=== PATIENT | male | born 2000 | race Caucasian/White ===

== ENCOUNTER 2023-07-14 23:17 | Inpatient (IN) | payer BC ==
--- NOTE | 2023-07-14 23:30 | ED ---
General Adult HPI <Herman Ross - Last Filed: 07/14/23 23:30> - General Source: RN notes reviewed, old records reviewed <Fabio Dowell - Last Filed: 07/16/23 21:32> - General Stated complaint: Suicidal Time Seen by Provider: 07/14/23 23:30 - History of Present Illness Initial comments: 22-year-old male presenting to the ED with a chief complaint of suicidal ideation. Notes he has been feeling more depressed lately. Does note history of prior suicide attempt. (Herman Ross) Patient is a 22-year-old male who presents emergency department family for concern for psychiatric complaints. Patient made suicidal statements of wanting to kill himself earlier today. Does have a history of attempts last year via overdose. Patient has been seeing a therapist as well as psychiatrist. Has been on medications. States that over the last couple days thoughts seem to be getting worse. Attributes it to his OCD. Presents for further evaluation at this time. Denies any attempts but just generalized suicidal ideations. Denies any homicidal ideations, intents, plans. Denies any hallucinations. Presents for further evaluation. Originally seen as a quick note. States he has been feeling more depressed lately. (Fabio Dowell) - Related Data Home Medications Medication Instructions Recorded Confirmed Sertraline [Zoloft] 250 mg PO DAILY 07/15/23 07/15/23 busPIRone HCl [Buspar] 10 mg PO TID 07/15/23 07/15/23 clomiPRAMINE HCL [Anafranil] 150 mg PO HS 07/15/23 07/15/23 diazePAM [Valium] 5 mg PO BID PRN 07/15/23 07/15/23 Allergies Allergy/AdvReac Type Severity Reaction Status Date / Time No Known Allergies Allergy Verified 07/15/23 09:04 Review of Systems ROS Other: All systems not noted in ROS Statement are negative. <Herman Ross - Last Filed: 07/14/23 23:30> ROS Other: All systems not noted in ROS Statement are negative. <Fabio Dowell - Last Filed: 07/16/23 21:32> ROS Statement: Those systems with pertinent positive or pertinent negative responses have been documented in the HPI. Review of Systems: CONST: Denies fever EYES: Denies blurry vision ENT: Denies nasal congestion C/V: Denies Chest pain RESP: Denies shortness of breath GI: Denies abdominal pain : Denies dysuria SKIN: Denies rash. MSK: Denies joint pain. NEURO: Denies headache PSYCH: Denies homicidal ideations/plans/attempts. Denies visual or auditory hallucinations. Endorses suicidal ideation but denies plan or attempt. (Fabio Dowell) General Exam <Herman Ross - Last Filed: 07/14/23 23:30> <Fabio Dowell - Last Filed: 07/16/23 21:32> - General Exam Comments Initial Comments: Visual Physical Exam Vital signs reviewed General: Well-appearing, nontoxic, no acute distress. Head: Normocephalic, atraumatic Eyes: PERRLA, EOMI ENT: Airway patent Chest: Nonlabored breathing Skin: No visual rash, normal skin tone Neuro: Alert and oriented 3 Musculoskeletal: No gross abnormalities (Herman Ross) General: Appears anxious HEAD: Normal with no signs of head trauma. EYES: EOMI. PERRLA ENT: Hearing grossly intact, normal oropharynx. RESPIRATORY: Clear breath sounds bilaterally. No wheezes, rales, or rhonchi. C/V: Regular rate and rhythm. S1 and S2 auscultated, no edema, peripheral pulses 2+ and intact throughout ABD: Abd is soft, nontender, nondistended EXT: Normal range of motion, no obvious deformity SKIN: No rashes or lesions observed on exposed skin. NEURO: Alert and oriented x 4. (Fabio Dowell) Course Vital Signs 07/14/23 07/15/23 23:27 06:04 Temperature 98.3 F 97.8 F Pulse Rate 120 H 90 Respiratory 20 18 Rate Blood Pressure 126/77 135/85 O2 Sat by Pulse 95 99 Oximetry Medical Decision Making <Herman Ross - Last Filed: 07/14/23 23:30> - Lab Data Result diagrams: 07/16/23 09:42 07/16/23 09:42 <Fabio Dowell - Last Filed: 07/16/23 21:32> - Medical Decision Making Quicknote portion performed. Signed Herman Ross PA-C (Herman Ross) Was pt. sent in by a medical professional or institution (SIRENA Treviño, SECRETARY TO THE VICE PRESIDENT, urgent care, hospital, or usp...) When possible be specific @ -No Did you speak to anyone other than the patient for history (EMS, parent, family, police, friend...)? What history was obtained from this source @ -Family assist with patient's psychiatric history. Did you review nursing and triage notes (agree or disagree)? Why? @ -I reviewed and agree with nursing and triage notes Were old charts reviewed (outside hosp., previous admission, EMS record, old EKG, old radiological studies, urgent care reports/EKG's, usp records)? Report findings @ -No old charts were reviewed Differential Diagnosis (chest pain, altered mental status, abdominal pain women, abdominal pain men, vaginal bleeding, weakness, fever, dyspnea, syncope, headache, dizziness, GI bleed, back pain, seizure, CVA, palpatations, mental health, musculoskeletal)? @ -Differential Mental Health Depression, anxiety, bipolar, psychosis, schizophrenia, borderline personality, situational depression, adjustment disorder, behavioral disorder, brain tumor, malingering, substance abuse, encephalopathy, medication reaction, dementia, hypothyroidism, degenerative neurologic disorder, lupus.... This is not meant to be all-inclusive list EKG interpreted by me (3pts min.). @ -None done X-rays interpreted by me (1pt min.). @ -None done CT interpreted by me (1pt min.). @ -None done U/S interpreted by me (1pt. min.). @ -None done What testing was considered but not performed or refused? (CT, X-rays, U/S, labs)? Why? @ -None What meds were considered but not given or refused? Why? @ -None Did you discuss the management of the patient with other professionals (professionals i.e. SIRENA Treviño, SECRETARY TO THE VICE PRESIDENT, lab, RT, psych nurse, social insurance administrator, harbor police launch commander, teacher, residential care officer, case management coordinator)? Give summary @ -EPS notified of the consult. Was smoking cessation discussed for >3mins.? @ -No Was critical care preformed (if so, how long)? @ -No Were there social determinants of health that impacted care today? How? (Homelessness, low income, unemployed, alcoholism, drug addiction, transportation, low edu. Level, literacy, decrease access to med. care, residential, rehab)? @ -No Was there de-escalation of care discussed even if they declined (Discuss DNR or withdrawal of care, Hospice)? DNR status @ -No What co-morbidities impacted this encounter? (DM, HTN, Smoking, COPD, CAD, Cancer, CVA, ARF, Chemo, Hep., AIDS, mental health diagnosis, sleep apnea, morbid obesity)? @ -None Was patient admitted / discharged? Hospital course, mention meds given and route, prescriptions, significant lab abnormalities, going to OR and other pertinent info. @ -Based on the patient's presentation and physical exam, presents emergency department for psychiatric evaluation. He will be placed on suicide precautions with a sitter. BAT is 0. UDS is pending. Vital signs within acceptable limits at bedside. I believe patient is medically cleared for evaluation by psychiatry. Disposition is pending psychiatric evaluation. EPS notified of the consult. Patient eventually admitted to inpatient psychiatry. Undiagnosed new problem with uncertain prognosis? @ -No Drug Therapy requiring intensive monitoring for toxicity (Heparin, Nitro, Insulin, Cardizem)? @ -No Were any procedures done? @ -No Diagnosis/symptom? @ -Depression, suicidal behavior Acute, or Chronic, or Acute on Chronic? @ -Acute Uncomplicated (without systemic symptoms) or Complicated (systemic symptoms)? @ -Complicated Side effects of treatment? @ -None Exacerbation, Progression, or Severe Exacerbation] @ -No Poses a threat to life or bodily function? @ -Yes (Fabio Dowell) - Lab Data Lab Results 07/15/23 07/15/23 Range/Units 00:12 11:30 Urine Opiates Screen Not Detected (NotDetected) Ur Oxycodone Screen Not Detected (NotDetected) Urine Methadone Screen Not Detected (NotDetected) Ur Barbiturates Screen Not Detected (NotDetected) U Tricyclic Antidepress Not Detected (NotDetected) Ur Phencyclidine Scrn Not Detected (NotDetected) Ur Amphetamines Screen Not Detected (NotDetected) U Methamphetamines Scrn Not Detected (NotDetected) U Benzodiazepines Scrn Detected H (NotDetected) Urine Cocaine Screen Not Detected (NotDetected) U Marijuana (THC) Screen Not Detected (NotDetected) SARS-CoV-2 (PCR) Not Detected (Not Detectd) Disposition <Herman Ross - Last Filed: 07/14/23 23:30> <Fabio Dowell - Last Filed: 07/16/23 21:32> Clinical Impression: Suicidal behavior, Depression Disposition: TRANSFER TO PSYCH HOSP/UNIT Condition: Stable
[2023-07-15 00:35] LABS: Amphetamine Screen,Urine Not Detected (NotDetected); Barbiturate Screen,Urine Not Detected (NotDetected); Benzodiazepines Screen,Urine Detected (NotDetected); Cocaine Screen,Urine Not Detected (NotDetected); Methadone Screen, Urine Not Detected (NotDetected); Opiate Screen,Urine Not Detected (NotDetected); Oxycodone Screen, Urine Not Detected (NotDetected); Phencyclidine Screen,Urine Not Detected (NotDetected); Tricyclic Antidepressant,Urine Not Detected (NotDetected); Urn Cannabinoid Scrn Not Detected (NotDetected)
[2023-07-15] MEDS ORDERED: OLANZapine 10 MG VIAL IM PRN (21:38)
[2023-07-15] MEDS ORDERED: OLANZapine 5 MG TAB PO PRN (21:38)
[2023-07-15] MEDS ORDERED: MAGNESIUM HYDROXIDE 2,400 MG/30 ML CUP PO PRN (21:38)
[2023-07-15] MEDS ORDERED: diazePAM 5 MG TAB PO PRN (21:38)
[2023-07-15] MEDS ORDERED: MAG HYDROX/AL HYDROX/SIMETH 30 ML CUP PO PRN (21:38)
[2023-07-15] MEDS ORDERED: ACETAMINOPHEN TAB 325 MG TAB PO PRN (21:38)
[2023-07-15] MEDS ORDERED: IBUPROFEN 600 MG TAB PO PRN (21:38)
[2023-07-15] MEDS: busPIRone HCl 10 MG TAB PO SCH (23:12)
[2023-07-16] MEDS: SERTRALINE 100 MG TAB PO SCH (08:22)
[2023-07-16 10:15] LABS: Basophils % (A) 1 %; Eosinophils # (A) 0.1 k/uL (0-0.7); Eosinophils % (A) 2 %; HCT 51.4 % (39.0-53.0); HGB 16.7 gm/dL (13.0-17.5); Lymphocytes # (A) 1.8 k/uL (1.0-4.8); Lymphocytes % (A) 31 %; MCH 28.7 pg (25.0-35.0); MCHC 32.4 g/dL (31.0-37.0); MCV 88.6 fL (80.0-100.0); Mean Platelet Volume 8.1; Monocytes # (A) 0.3 k/uL (0-1.0); Monocytes % (A) 6 %; Neutrophils # (A) 3.3 k/uL (1.3-7.7); Neutrophils % (A) 59 %; Platelet Count 220 k/uL (150-450); RDW 12.9 % (11.5-15.5); WBC 5.7 k/uL (3.8-10.6)
[2023-07-16 10:39] LABS: ALT 30 U/L (4-49); AST 31 U/L (17-59); African American GFR (CKD) >90 (>60 ml/min/1.73 sqM); Albumin 4.7 g/dL (3.5-5.0); Alkaline Phosphatase 136 U/L (38-126); Anion Gap 6 mmol/L; Blood Urea Nitrogen 13 mg/dL (9-20); Carbon Dioxide 29 mmol/L (22-30); Chloride 104 mmol/L (98-107); Glucose 92 mg/dL (74-99); Non-African American GFR(CKD) >90 (>60 ml/min/1.73 sqM); Potassium 4.9 mmol/L (3.5-5.1); Sodium 139 mmol/L (137-145); Total Bilirubin 0.5 mg/dL (0.2-1.3); Total Protein 7.8 g/dL (6.3-8.2)
--- NOTE | 2023-07-16 12:44 | P.HP ---
Psychiatric H&P - . H&P Date: 07/16/23 History & Physical: Allergies Allergy/AdvReac Type Severity Reaction Status Date / Time No Known Allergies Allergy Verified 07/15/23 09:04 Vital Signs Temp 97.4 F L 07/16/23 06:52 Pulse 106 H 07/16/23 06:52 Resp 16 07/16/23 06:52 BP 137/65 07/16/23 06:52 Pulse Ox 97 07/15/23 22:50 FiO2 Intake & Output 07/15/23 07/16/23 07/16/23 18:59 06:59 18:59 Weight 81.278 kg Laboratory Last Values Urine Opiates Screen Not Detected (NotDetected) 07/15/23 00:12 Ur Oxycodone Screen Not Detected (NotDetected) 07/15/23 00:12 Urine Methadone Screen Not Detected (NotDetected) 07/15/23 00:12 Ur Barbiturates Screen Not Detected (NotDetected) 07/15/23 00:12 U Tricyclic Antidepress Not Detected (NotDetected) 07/15/23 00:12 Ur Phencyclidine Scrn Not Detected (NotDetected) 07/15/23 00:12 Ur Amphetamines Screen Not Detected (NotDetected) 07/15/23 00:12 U Methamphetamines Scrn Not Detected (NotDetected) 07/15/23 00:12 U Benzodiazepines Scrn Detected (NotDetected) H 07/15/23 00:12 Urine Cocaine Screen Not Detected (NotDetected) 07/15/23 00:12 U Marijuana (THC) Screen Not Detected (NotDetected) 07/15/23 00:12 SARS-CoV-2 (PCR) Not Detected (Not Detectd) 07/15/23 11:30 07/16/23 08:50 IDENTIFYING DATA: Patient is a 22-year-old man, works in a factory full-time, lives with his grandparents in a house. No children HPI: Patient presented to the hospital on 07/15. As per EPS note, "Cl reports wanting to runaway and be alone due to increasing symptoms of OCD/depression. Cl presents anxious, guarded, thought blocking, ASD, stating they feel they have no purpose, loss of interest, motivation, energy the last 60 days. Cl also reports frustrations surrounding not being able to be in a relationship w a woman". Upon today's assessment, patient states that he came in because he had thoughts of "going missing", and these intrusive thoughts have been happening for about a week or so. He didn't have thoughts of hurting himself, just running away. Stressors include his job, stating he has a difficult time concentrating. He claims he has OCD, and it's been bad. States that he mentally reviews things that he's done, which include, sitting in his car, thinking about punching out, putting gloves in his locker, etc. Claims that his thoughts race from time to time. Patient denies any suicidal or homicidal ideations intent or plan. At this time patient denies any auditory or visual hallucinations. Patient denies any flight of ideas and increased in goal directed behavior. Patient denies using recreational drugs/alcohol/nicotine. PAST PSYCHIATRIC HISTORY: Patient states that he was in [facility] in December 2022. Patient is on psychiatric medications. Patient sees Dr larson for psychiatric outpatient follow-up, via telepsych. Patient does have history of suicide attempt in the past, by OD, last December. PMH:As per ER note ALLERGIES: as per EMR CHEMICAL DEPENDENCY HISTORY: as per HPI FAMILY PSYCHIATRIC/SUBSTANCE USE HISTORY: dads side has OCD and depression SOCIAL HISTORY: Patient was born and raised in [place], [place]. High school graduate, some college, 3 years, studying computer science. Never , no children. Lives in a house with his grandparents, works in a factory. Denies legal history. MENTAL STATUS EXAM: General Appearance: Patient appears to be stated age is alert, directable, and attempts to cooperate. Patient appears to have fair hygiene and grooming. Wearing a hospital gown. Behavior: Patient is seated without any agitated behavior. Hands folded on lap, anxious withdrawn Speech: Patient's speech is fluent and nonpressured. soft tone. concrete. Mood/Affect: Patient reports their mood is ok, affect is congruent and constricted. anxious Suicidality/Homicidality: Patient denies having any homicidal ideation intent or plan. Denies any suicidal ideations intent or plan Perceptions: Patient denies any visual hallucinations and denies any auditory hallucinations Though content/process: There is no evidence of any delusional thought content and thought process is linear and goal-directed. Memory and concentration: AOX3, grossly intact for the purposes of this session. Can spell "WORLD" backwards Judgment and insight: poor STRENGTHS/WEAKNESSES: strength is that patient is resilient. Weakness is that patient has poor judgment and is impulsive INTELLECT: average IMPRESSIONS: depressive disorder, unspecified Suicidal Ideations OCD Autism spectrum disorder PLAN: -Patient is admitted under voluntary status to MHU for stabilization of psychiatric symptoms and safety. Patient has signed adult voluntary form and medication consent and is placed in patient's chart. -Medications : Seroquel 25mg qhs for mood/insomnia/anxiety, continue home dose of Zoloft 250mg qd for mood/anxiety, increase Buspar 15mg tid for anxiety -Will check EKG today -Valium and Zyprexa PRN for agitation/aggression -Patient was informed of the risks, benefits and side effects of the medication and patient verbally consented to taking the medications. -Internal Medicine consult to perform medical evaluation and physical. -NRT - nonsmoker -SW on board for discharge planning. Encourage patient to participate in groups to work on coping skills.
[2023-07-16 15:41] LABS: Chol/HDL Ratio 4.95 Ratio; LDL Cholesterol,Calculated 157.3 mg/dL (0.0-131.0)
[2023-07-16] MEDS: busPIRone HCl 5 MG TAB PO SCH (16:07)
[2023-07-16] MEDS: QUEtiapine 25 MG TAB PO SCH (20:43)
--- NOTE | 2023-07-17 03:36 | P.CONS ---
History of Present Illness - Reason for Consult Consult date: 07/17/23 - History of Present Illness The patient is a 22-year-old male with no known PMH who had presented to the emergency room with complaints of depression and suicidal ideation. The patient had reportedly attempted to harm himself the previous year with overdose and has been seeing a psychiatrist. He had reported worsening OCD and thoughts of self- harm which prompted him to come to the emergency room. The patient was admitted to mental health unit where he was seen and evaluated. He reports wanting to "run away " he denies any physical complaints at the time of interview. Denied alcohol, tobacco, or substance use. Denies chest pain, shortness of breath, fever, chills, cough, nausea, vomiting, abdominal pain, diarrhea. Review of systems: Pertinent positives and negatives as discussed in HPI, a complete review of systems was performed and all other systems are negative. Physical examination: General: non toxic, no distress, appears at stated age, normal weight Derm: no unusual rashes/lesions, no unusual ecchymoses, warm, dry Head: atraumatic, normocephalic, symmetric Eyes: EOMI, no lid lag, anicteric sclera ENT: Nose and ears atraumatic, no thrush, no pharyngeal erythema Neck: trachea midline, supple Mouth: no lip lesion, mucus membranes moist Cardiovascular: S1S2 reg, no murmur, no edema Lungs: CTA bilateral, no rhonchi, no rales , no accessory muscle use Abdominal: soft, nontender to palpation, no guarding Ext: no gross muscle atrophy, no contractures, Neuro: No gross focal neuro deficits noted Psych: Alert, oriented, appropriate affect Assessment: Hyperlipidemia Depression and suicidal ideation Imaging: None performed Data Review: Laboratory evaluation was reviewed with WBC count 5.7, hemoglobin 16.7, LDL 157, and triglycerides 155 Plan: The patient currently does not meet criteria for statin in setting of hyperlipidemia Defer management of depression and suicidal ideation to the primary psychiatry service Thank you for allowing us to participate in the care of this patient. We will follow peripherally. Do not hesitate to contact us with questions. Someone can be reached from the [facility] hospitalist group at all hours of the day at [phone]. Past Medical History Past Medical History: No Reported History History of Any Multi-Drug Resistant Organisms: None Reported Past Surgical History: No Surgical Hx Reported Past Anesthesia/Blood Transfusion Reactions: No Reported Reaction Past Psychological History: Depression Smoking Status: Never smoker Past Alcohol Use History: Occasional Past Drug Use History: None Reported - Past Family History Father Family Medical History: No Reported History Mother Family Medical History: Hyperlipidemia Medications and Allergies Home Medications Medication Instructions Recorded Confirmed Type Sertraline [Zoloft] 250 mg PO DAILY 07/15/23 07/15/23 History busPIRone HCl [Buspar] 10 mg PO TID 07/15/23 07/15/23 History clomiPRAMINE HCL [Anafranil] 150 mg PO HS 07/15/23 07/15/23 History diazePAM [Valium] 5 mg PO BID PRN 07/15/23 07/15/23 History Allergies Allergy/AdvReac Type Severity Reaction Status Date / Time No Known Allergies Allergy Verified 07/15/23 09:04 Physical Exam Vitals: Vital Signs Temp Pulse Resp BP 07/16/23 06:52 97.4 F L 106 H 16 137/65 Results CBC & Chem 7: 07/16/23 09:42 07/16/23 09:42 Labs: Abnormal Lab Results - Last 24 Hours (Table) 07/16/23 Range/Units 09:42 Alkaline Phosphatase 136 H (38-126) U/L Triglycerides 155.00 H (0.00-149.00) mg/dL Cholesterol 236.00 H (0.00-200.00) mg/dL LDL Cholesterol, Calc 157.3 H (0.0-131.0) mg/dL
--- NOTE | 2023-07-17 11:45 | P.PN ---
Progress Note - Text Progress Note Date: 07/17/23 Interval History: Patient was seen in group, and was directable and agreeable to speak with copywriter in the office. Patient states that his mood is "pretty good" and his anxiety is low at this time. Patient says that his OCD symptoms are improving a little bit and it is easier to redirect his thoughts. Patient had a visit with his grandfather last night, and said it was very nice. Patient has been going to groups and participating with other patients on the unit. Claims that he slept fairly last night. At this time patient denies any suicidal or homicidal ideations, intent or plan. Patient denies any auditory, visual hallucinations and denies any paranoia or delusions. Patient denies any side effects from the medications and has been compliant with meds. MENTAL STATUS EXAM: General Appearance: Patient appears to be stated age is alert, directable, and attempts to cooperate. Patient appears to have fair hygiene and grooming. Wearing street clothes. Behavior: Patient is seated without any agitated behavior. Hands folded on lap, anxious withdrawn, mildly improving Speech: Patient's speech is fluent and nonpressured. soft tone. concrete. mildly improving Mood/Affect: Patient reports their mood is ok, affect is congruent and constricted. anxious mildly improving Suicidality/Homicidality: Patient denies having any homicidal ideation intent or plan. Denies any suicidal ideations intent or plan Perceptions: Patient denies any visual hallucinations and denies any auditory lewis llucinations Though content/process: There is no evidence of any delusional thought content and thought process is linear and goal-directed. Memory and concentration: AOX3, grossly intact for the purposes of this session. Judgment and insight: poor, mildly improving IMPRESSIONS: depressive disorder, unspecified Suicidal Ideations OCD Autism spectrum disorder PLAN: -Patient is admitted under voluntary status to MHU for stabilization of psychiatric symptoms and safety. Patient has signed adult voluntary form and medication consent and is placed in patient's chart. -Medications : Seroquel 25mg qhs for mood/insomnia/anxiety, continue home dose of Zoloft 250mg qd for mood/anxiety, may increase to 300mg over the weekend. increase Buspar 20mg tid for anxiety -awaiting EKG -Valium and Zyprexa PRN for agitation/aggression -SW on board for discharge planning. Encourage patient to participate in groups to work on coping skills. Possible discharge Friday, if patient continues to psychiatrically improve over the weekend.
[2023-07-17] MEDS: busPIRone HCl 10 MG TAB PO SCH (16:52)
--- NOTE | 2023-07-18 11:53 | P.PN ---
Progress Note - Text Progress Note Date: 07/18/23 Interval History: Patient was seen coming out of group, and was directable and agreeable to speak with securities underwriter in the office. Patient states that his mood is " good" and his anxiety is low today. Patient says that his OCD symptoms and racing thoughts are improving and it is easier to redirect his thoughts Patient states that he is no longer having racing thoughts. He has also been going to all the groups and participating with other patients on the unit. Claims that he slept well last night. At this time patient denies any suicidal or homicidal ideations, intent or plan. Patient denies any auditory, visual hallucinations and denies any paranoia or delusions. Patient denies any side effects from the medications and has been compliant with meds. MENTAL STATUS EXAM: General Appearance: Patient appears to be stated age is alert, directable, and attempts to cooperate. Patient appears to have fair hygiene and grooming. Wearing street clothes. Behavior: Patient is seated without any agitated behavior. Hands folded on lap, mildly improving Speech: Patient's speech is fluent and nonpressured. concrete. mildly improving Mood/Affect: Patient reports their mood is ok, affect is congruent and constricted. mildly improving Suicidality/Homicidality: Patient denies having any homicidal ideation intent or plan. Denies any suicidal ideations intent or plan Perceptions: Patient denies any visual hallucinations and denies any auditory hallucinations Though content/process: There is no evidence of any delusional thought content and thought process is linear and goal-directed. Memory and concentration: AOX3, grossly intact for the purposes of this session. Judgment and insight: poor, mildly improving IMPRESSIONS: depressive disorder, unspecified Suicidal Ideations OCD Autism spectrum disorder PLAN: -Patient is admitted under voluntary status to MHU for stabilization of psychi atric symptoms and safety. Patient has signed adult voluntary form and medication consent and is placed in patient's chart. -Medications : Seroquel 25mg qhs for mood/insomnia/anxiety, Zoloft 250mg qd for mood/anxiety, may increase to 300mg over the weekend ONLY if needed. Buspar 20mg tid for anxiety -ekg reviewed -Valium and Zyprexa PRN for agitation/aggression -SW on board for discharge planning. Encourage patient to participate in groups to work on coping skills. Possible discharge Friday back to grandparents house, if patient continues to psychiatrically improve over the weekend.
[2023-07-19 15:32] LABS: Appearance,Urine Clear (Clear); Bilirubin,Urine Negative (Negative); Blood,Urine Negative (Negative); Color,Urine Light Yellow; Glucose,Urine (UA) Negative (Negative); Ketones,Urine Negative (Negative); Leukocyte Esterase,Urine Negative (Negative); Nitrite,Urine Negative (Negative); PH, Urine 6.5 (5.0-8.0); Protein,Urine Negative (Negative); Specific Gravity,Urine 1.015 (1.001-1.035); Urobilinogen,Urine <2.0 mg/dL (<2.0)
--- NOTE | 2023-07-19 22:54 | P.PN ---
Progress Note - Text Progress Note Date: 07/19/23 Interval History: The patient was seen today as coverage for Dr. Gunter. Their chart was reviewed, and the case was discussed with the nursing staff. The patient reports good sleep and appetite. The patient has been participating in groups and other unit activities. The patient has been taking their psychiatric medications and denies side effects. The patient reports feeling more stable mentally and denies suicidal or homicidal ideation. There are no reports of delusions, manic symptoms, or hallucinations. The patient was very constricted in his answers but cooperative. The patient greatly minimizes anxiety. MENTAL STATUS EXAM: General Appearance: Patient appears to be stated age is alert, fair hygiene and grooming. Wearing street clothes. Behavior: Patient is cooperative, seated without any agitated behavior. Speech: Patient's speech is fluent and non pressured. concrete. Mood/Affect: Patient reports their mood is "fine", affect is congruent and constricted. Suicidal /Homicidal risk: Patient denies having any homicidal ideation intent or plan. Denies any suicidal ideation intent or plan Perceptions: Patient denies any visual hallucinations and denies any auditory hallucinations Though content/process: There is no evidence of any delusional thought content and thought process is linear and goal-directed. Memory and concentration: AOX3, grossly intact for the purposes of this session. Judgment and insight: limited, improving as per previous reports. IMPRESSIONS: Depressive disorder, unspecified Suicidal Ideation OCD Autism spectrum disorder PLAN: -Patient is admitted under voluntary status to MHU for stabilization of psychiatric symptoms and safety. Patient has signed adult voluntary form and medication consent and is placed in patient's chart. Continue inpatient psychiatric hospitalization. Implement the following precautions as recommended by the admitting psychiatrist: suicide and elopement Consult the medical team immediately if any medical concerns arise. Educate the patient on the benefits of participating in groups and other unit activities and encourage active participation. Medications: Continue Seroquel 25mg qhs for mood/insomnia/anxiety, Continue Zoloft 250mg qd for mood/anxiety, No need to increase to 300mg over the weekend. Continue Buspar 20mg tid for anxiety Continue PRN psychiatric Medications including Valium and Zyprexa PRN for agitation/aggression Discharge planning is currently in progress.
[2023-07-21 08:36] VITALS: BP 135/86; PULSE 111; RESP 18; TEMP 97.3
--- NOTE | 2023-07-21 10:01 | P.DS ---
Providers Date of admission: 07/15/23 21:36 Expected date of discharge: 07/21/23 Attending physician: Jimmy Gunter MD Consults: 07/15/23 21:38 Consult Physician Routine Consulting Provider: Bernardino Serna Consult Reason/Comments: H&P and medical Do you want consulting provider notified?: Yes Primary care physician: Maria Isabel Alonzo - Discharge Diagnosis(es) (1) Major depressive disorder, single episode, unspecified Current Visit: Yes Status: Acute Priority: High (2) Suicidal ideation Current Visit: Yes Status: Acute Priority: High (3) OCD (obsessive compulsive disorder) Current Visit: Yes Status: Acute Priority: Medium (4) Autism spectrum disorder Current Visit: Yes Status: Acute Priority: High Hospital Course: Admission HPI: Admission note was completed by greeting card writer "Patient presented to the hospital on 07/15. As per EPS note, "Cl reports wanting to runaway and be alone due to increasing symptoms of OCD/depression. Cl presents anxious, guarded, thought blocking, ASD, stating they feel they have no purpose, loss of interest, motivation, energy the last 60 days. Cl also reports frustrations surrounding not being able to be in a relationship w a woman". Upon today's assessment, patient states that he came in because he had thoughts of "going missing", and these intrusive thoughts have been happening for about a week or so. He didn't have thoughts of hurting himself, just running away. Stressors include his job, stating he has a difficult time concentrating. He claims he has OCD, and it's been bad. States that he mentally reviews things that he's done, which include, sitting in his car, thinking about punching out, putting gloves in his locker, etc. Claims that his thoughts race from time to time. Patient denies any suicidal or homicidal ideations intent or plan. At this time patient denies any auditory or visual hallucinations. Patient denies any flight of ideas and increased in goal directed behavior. Patient denies using recreational drugs /alcohol/nicotine." Hospital course: Upon admission to the unit patient was directable and agreeable to commence treatment and signed adult voluntary form. Patient got along well with other patients on the unit and followed unit protocol. Patient was compliant with the medications and denied any side effects throughout hospital course. Patient was started on Seroquel 25 mg nightly for mood stabilization/insomnia/anxiety, continue dose of Zoloft 250 mg daily for mood/anxiety. Increased BuSpar to 20 mg 3 times daily for anxiety. Clomipramine was discontinued at this time. Patient spoke of his stressors and engaged in therapy both group and individual. Patient was also seen by medical team for history and physical exam. Patient had an EKG completed and reviewed. Throughout the course of the hospitalization patient gradually improved with regards to mood, anxiety, suicidal ideations, sleep and returned back to their baseline level of functioning. On the day of discharge patient denied any suicidal or homicidal ideations intent or plan denied any auditory or visual hallucinations. Patient endorsed wanting to live for his health and family. The patient denied any access to guns or weapons. Patient denied any paranoia and did not endorse any delusions. Patient does not have a significant history of substance abuse and was counseled on abstaining from all substances including alcohol and marijuana. Patient was also counseled on the medications and need for regular compliance and was encouraged to follow-up with their outpatient appointment for mental health and also for primary care. Prior to discharge a family meeting will be arranged by social media manager to answer any questions and ensure safety upon discharge. Mental status exam: General Appearance: Patient appears to be tall, thin, stated age is alert, pleasant, and cooperative. Patient is in no acute distress and has improved hygiene and grooming Behavior: Patient is calmly seated without any agitated behavior. Speech: Patient's speech is fluent and nonpressured. Mood/Affect: Patient reports their mood is "better", affect is congruent and euthymic. Suicidality/Homicidality: Patient denies having any suicidal or homicidal ideation intent or plan. Perceptions: Patient denies any auditory or visual hallucinations. Though content/process: There is no evidence of any delusional thought content and thought process is linear and goal-directed. More future oriented Memory and concentration: AOX3, grossly intact for the purposes of this session. Can spell "WORLD" backwards correctly. Judgment and insight: Chronically limited, improved with guarded prognosis Impression: depressive disorder, unspecified Suicidal Ideations OCD Autism spectrum disorder Plan: -Continue with discharge today as patient has improved and stabilized psychiatrically and is not currently an imminent threat to himself and/or others. Patient will remain at chronically elevated risk for harm to self and/or others due to his impulsivity\\. -Continue medications: Seroquel 25 mg nightly for mood stabilization/insomnia/anxiety, Zoloft 250 mg daily for mood/anxiety, BuSpar 20 mg 3 times daily for anxiety. -Patient was counseled on the need for medication compliance and appropriate follow-up at mental health and also primary care for medical issues. Patient verbalized understanding and agreed. -Social work to arrange for and conduct family meeting to ensure safety upon discharge and answer any questions/concerns. Social work also to arrange for patients follow up appointments for psychiatric care along with follow up with primary care provider. -Patient counseled on abstaining from recreational drugs and marijuana and alcohol. Was informed/educated on the adverse effects on their physical and mental health. Patient verbally agreed and understood. -Patient was instructed to return to the hospital or seek immediate medical care if their psychiatric or medical symptoms do worsen or reoccur. Allergies Allergy/AdvReac Type Severity Reaction Status Date / Time No Known Allergies Allergy Verified 07/15/23 09:04 Laboratory Results WBC 5.7 k/uL (3.8-10.6) 07/16/23 09:42 RBC 5.80 m/uL (4.30-5.90) 07/16/23 09:42 Hgb 16.7 gm/dL (13.0-17.5) 07/16/23 09:42 Hct 51.4 % (39.0-53.0) 07/16/23 09:42 MCV 88.6 fL (80.0-100.0) 07/16/23 09:42 MCH 28.7 pg (25.0-35.0) 07/16/23 09:42 MCHC 32.4 g/dL (31.0-37.0) 07/16/23 09:42 RDW 12.9 % (11.5-15.5) 07/16/23 09:42 Plt Count 220 k/uL (150-450) 07/16/23 09:42 MPV 8.1 07/16/23 09:42 Neutrophils % 59 % 07/16/23 09:42 Lymphocytes % 31 % 07/16/23 09:42 Monocytes % 6 % 07/16/23 09:42 Eosinophils % 2 % 07/16/23 09:42 Basophils % 1 % 07/16/23 09:42 Neutrophils # 3.3 k/uL (1.3-7.7) 07/16/23 09:42 Lymphocytes # 1.8 k/uL (1.0-4.8) 07/16/23 09:42 Monocytes # 0.3 k/uL (0-1.0) 07/16/23 09:42 Eosinophils # 0.1 k/uL (0-0.7) 07/16/23 09:42 Basophils # 0.0 k/uL (0-0.2) 07/16/23 09:42 Sodium 139 mmol/L (137-145) 07/16/23 09:42 Potassium 4.9 mmol/L (3.5-5.1) 07/16/23 09:42 Chloride 104 mmol/L (98-107) 07/16/23 09:42 Carbon Dioxide 29 mmol/L (22-30) 07/16/23 09:42 Anion Gap 6 mmol/L 07/16/23 09:42 BUN 13 mg/dL (9-20) 07/16/23 09:42 Creatinine 1.03 mg/dL (0.66-1.25) 07/16/23 09:42 Est GFR (CKD-EPI)AfAm >90 (>60 ml/min/1.73 sqM) 07/16/23 09:42 Est GFR (CKD-EPI)NonAf >90 (>60 ml/min/1.73 sqM) 07/16/23 09:42 Glucose 92 mg/dL (74-99) 07/16/23 09:[address] Glu mg/dL 111 mg/dL 07/16/23 09:42 Hemoglobin A1c 5.5 % (<=6.0) 07/16/23 09:42 Calcium 10.0 mg/dL (8.4-10.2) 07/16/23 09:42 Total Bilirubin 0.5 mg/dL (0.2-1.3) 07/16/23 09:42 AST 31 U/L (17-59) 07/16/23 09:42 ALT 30 U/L (4-49) 07/16/23 09:42 Alkaline Phosphatase 136 U/L (38-126) H 07/16/23 09:42 Total Protein 7.8 g/dL (6.3-8.2) 07/16/23 09:42 Albumin 4.7 g/dL (3.5-5.0) 07/16/23 09:42 Triglycerides 155.00 mg/dL (0.00-149.00) H 07/16/23 09:42 Cholesterol 236.00 mg/dL (0.00-200.00) H 07/16/23 09:42 LDL Cholesterol, Calc 157.3 mg/dL (0.0-131.0) H 07/16/23 09:42 VLDL Cholesterol, Calc 31.00 mg/dL (5.00-40.00) 07/16/23 09:42 HDL Cholesterol 47.70 mg/dL (40.00-60.00) 07/16/23 09:42 Cholesterol/HDL Ratio 4.95 Ratio 07/16/23 09:42 TSH 0.571 mIU/L (0.465-4.680) 07/16/23 09:42 Urine Color Light Yellow 07/19/23 14:59 Urine Appearance Clear (Clear) 07/19/23 14:59 Urine pH 6.5 (5.0-8.0) 07/19/23 14:59 Ur Specific [place] 1.015 (1.001-1.035) 07/19/23 14:59 Urine Protein Negative (Negative) 07/19/23 14:59 Urine Glucose (UA) Negative (Negative) 07/19/23 14:59 Urine Ketones Negative (Negative) 07/19/23 14:59 Urine Blood Negative (Negative) 07/19/23 14:59 Urine Nitrite Negative (Negative) 07/19/23 14:59 Urine Bilirubin Negative (Negative) 07/19/23 14:59 Urine Urobilinogen <2.0 mg/dL (<2.0) 07/19/23 14:59 Ur Leukocyte Esterase Negative (Negative) 07/19/23 14:59 Urine Opiates Screen Not Detected (NotDetected) 07/15/23 00:12 Ur Oxycodone Screen Not Detected (NotDetected) 07/15/23 00:12 Urine Methadone Screen Not Detected (NotDetected) 07/15/23 00:12 Ur Barbiturates Screen Not Detected (NotDetected) 07/15/23 00:12 U Tricyclic Antidepress Not Detected (NotDetected) 07/15/23 00:12 Ur Phencyclidine Scrn Not Detected (NotDetected) 07/15/23 00:12 Ur Amphetamines Screen Not Detected (NotDetected) 07/15/23 00:12 U Methamphetamines Scrn Not Detected (NotDetected) 07/15/23 00:12 U Benzodiazepines Scrn Detected (NotDetected) H 07/15/23 00:12 Urine Cocaine Screen Not Detected (NotDetected) 07/15/23 00:12 U Marijuana (THC) Screen Not Detected (NotDetected) 07/15/23 00:12 SARS-CoV-2 (PCR) Not Detected (Not Detectd) 07/15/23 11:30 Vital Signs Temp 97.3 F L 07/21/23 08:17 Pulse 111 H 07/21/23 08:17 Resp 18 07/21/23 08:17 BP 135/86 07/21/23 08:17 Pulse Ox 100 07/21/23 08:17 FiO2 Intake & Output 07/20/23 07/21/23 07/21/23 18:59 06:59 18:59 Weight 81.1 kg Patient Condition at Discharge: Stable Plan - Discharge Summary Discharge Rx Participant: No New Discharge Prescriptions: New QUEtiapine [SEROquel] 25 mg PO HS 30 Days #30 tab busPIRone HCl [Buspar] 20 mg PO TID 30 Days #180 tab Continue Sertraline [Zoloft] 250 mg PO DAILY 30 Days #70 tab Discontinued clomiPRAMINE HCL [Anafranil] 150 mg PO HS diazePAM [Valium] 5 mg PO BID PRN PRN Reason: Anxiety busPIRone HCl [Buspar] 10 mg PO TID Discharge Medication List QUEtiapine [SEROquel] 25 mg PO HS 30 Days #30 tab 07/21/23 [Rx] Sertraline [Zoloft] 250 mg PO DAILY 30 Days #70 tab 07/21/23 [Rx] busPIRone HCl [Buspar] 20 mg PO TID 30 Days #180 tab 07/21/23 [Rx] Follow up Appointment(s)/Referral(s): Therapy,[facility] [Other] - 07/25/23 11:00 am (Telehealth 07/25 @ 11:00am) Nonstaff,Physician [REFERRING] - 1-2 days Activity/Diet/Wound Care/Special Instructions: Avoid the use of street drugs and alcohol. Take all medications as prescribed. When you are in need of refills on your medications, please contact your medical provider and/or outpatient psychiatrist/provider to have this done. Please go to your scheduled outpatient appointment for aftercare treatment. If symptoms return or become worse, call the crisis line at and/or go to the nearest emergency room for evaluation. National Suicide Hotline 988. Discharge Disposition: HOME SELF-CARE
--- NOTE | 2023-07-21 11:45 | P.PN ---
Progress Note - Text Progress Note Date: 07/20/23 Interval History: The patient was seen today as coverage for Dr. Gunter. Their chart was reviewed, and the case was discussed with the nursing staff. The patient reported feeling stable emotionally and denies symptoms of depression, anxiety, or drastic mood swings. The patient denied suicidal or homicidal ideation and no reports of agitation, irritability, or homicidal ideation. The patient denied hallucinations, paranoid ideation, delusions, or manic symptoms. The patient presented today with brighter affect and was seen watching TV in the day area. The patient reports fair sleep and appetite, taking his psychiatric medications and denied side effects. MENTAL STATUS EXAM: General Appearance: Patient appears to be stated age is alert, fair hygiene and grooming. Wearing street clothes. Behavior: Patient is cooperative, seated without any agitated behavior. Speech: Patient's speech is fluent and non pressured. concrete. Mood/Affect: Patient reports their mood is "fine", affect is congruent and constricted. Suicidal /Homicidal risk: Patient denies having any homicidal ideation intent or plan. Denies any suicidal ideation intent or plan Perceptions: Patient denies any visual hallucinations and denies any auditory hallucinations Though content/process: There is no evidence of any delusional thought content and thought process is linear and goal-directed. Memory and concentration: AOX3, grossly intact for the purposes of this session. Judgment and insight: Improving IMPRESSIONS: Depressive disorder, unspecified Suicidal Ideation OCD Autism spectrum disorder PLAN: -Patient is admitted under voluntary status to [facility]HU for stabilization of psychiatric symptoms and safety. Patient has signed adult voluntary form and medication consent and is placed in patient's chart. Continue inpatient psychiatric hospitalization. Implement the following precautions as recommended by the admitting psychiatrist: suicide and elopement Consult the medical team immediately if any medical concerns arise. Educate the patient on the benefits of participating in groups and other unit activities and encourage active participation. Medications: Continue Seroquel 25mg qhs for mood/insomnia/anxiety, Continue Zoloft 250mg qd for mood/anxiety, No need to increase to 300mg over the weekend. Continue Buspar 20mg tid for anxiety Continue PRN psychiatric Medications including Valium and Zyprexa PRN for agitation/aggression Discharge planning is currently in progress.
== END 2023-07-21 11:55 | disposition home or self-care (01) | DRG 881 ==
LOC: EC 23:17 → 3MHU 07-15 21:36
PROVIDERS: ADMIT Psychiatry & Neurology Psychiatry; ATTEND Psychiatry & Neurology Psychiatry
DX: F32.9 Major depressive disorder, single episode, unspecified (principal); R45.851 Suicidal ideations; Z11.52 Encounter for screening for COVID-19; F42.9 Obsessive-compulsive disorder, unspecified; F84.0 Autistic disorder; F41.9 Anxiety disorder, unspecified; E78.5 Hyperlipidemia, unspecified; G47.00 Insomnia, unspecified; Z79.899 Other long term (current) drug therapy; Z91.51 Personal history of suicidal behavior; Z71.41 Alcohol abuse counseling and surveillance of alcoholic; Z71.51 Drug abuse counseling and surveillance of drug abuser; Z81.8 Family history of other mental and behavioral disorders
CPT/HCPCS: 80053; 80061; 80306; 81003; 82075; 83036; 84443; 85025; 87635; 93005; 99285